=== PATIENT | female | born 1940 | race Two or more races ===

== ENCOUNTER 2018-03-25 09:26 | Outpatient (CLI) | payer OTHER | END 2018-03-25 09:28 | disposition home or self-care (01) | LOC: SONOGRAMA 09:26 | DX: C07 Malignant neoplasm of parotid gland (principal) ==

== ENCOUNTER 2018-07-29 09:50 | Outpatient (CLI) | payer OTHER | END 2018-07-29 09:53 | disposition home or self-care (01) | LOC: SONOGRAMA 09:50 | DX: R59.0 Localized enlarged lymph nodes (principal) ==